=== PATIENT | female | born 1945 ===

== ENCOUNTER 2022-06-21 10:04 | Inpatient (IN) | payer MEDICARE, BC ==
[~2022-06-21] VITALS: Ht 154.9 cm; Wt 60.1 kg
[2022-06-21] VITALS (12 sets, daily range): BP systolic 91–125; BP diastolic 44–82; PULSE 57–72; TEMP 97–97.9
[2022-06-21] MEDS ORDERED: FOSAMAX5 MG PO (11:16)
[2022-06-21] MEDS ORDERED: COMPLETE MULTI1 TAB PO (11:17)
--- NOTE | 2022-06-21 13:24 | NUR ---
Patient admitted to room 328. Alert & oriented. & anesthesia rounded. Plan of care reviewed. Lr to gravity to IV in LAC. Patient up to the bathroom & voided. Brushed her teeth at this sink. Admission paperwork complete. Patient to the OR with Constanza, will await her return
--- NOTE | 2022-06-21 16:14 | NUR ---
Patient resting in bed post op. Visitiors at bedside. Vitals stable on room air. Lap site x3 edges well approximated. Denies nausea, food ordered. tolerating clears. Iv to INT. Will monitor
--- NOTE | 2022-06-21 18:14 | NUR ---
Patient has been up to the bathroom & was able to void. Did well with dinner. Denies the need for pain medication. Vss on room air. Scds ble Will report off to nightnurse
--- NOTE | 2022-06-21 20:11 | NUR ---
pt sleeping upon entry, easily awaken. assessment complete. x3 lap sites are cdi. pt rates her pain a 2/10. bowel sounds are active. denies passing gas and nausea. dressing to RLE is cdi. call light within reach. no needs at this time.
[2022-06-22 04:10] VITALS: BP 106/50; PULSE 72; TEMP 97.5
[2022-06-22 08:21] VITALS: BP 124/51; PULSE 66; TEMP 98.2
[2022-06-22] MEDS ORDERED: NORCO 325 MG-51 TAB PO (08:35)
--- NOTE | 2022-06-22 09:24 | NUR ---
0700-PT RESTING BED. PT STATES SHE FEELS MUCH BETTER AND IS PASSING GAS. PT HAS CALL LIGHT AND INSTRUCTED TO CALL WITH ALL NEEDS. 0900-PT IS TO BE DISCHARGE TODAY. PT STATES FAMILY CAN NOT COME PICK HER UP TILL AROUND DINNER TIME.
--- NOTE | 2022-06-22 10:32 | NUR ---
IV DCD. DISCHARGE INSTRUCTIONS DISCUSSED WITH PT. ALL QUESITONS ANSWERED. PT REMINDED TO [employer] [facility]. PT DRESSED AND AWAITING FAMILY FOR DISCHARGE.
--- NOTE | 2022-06-22 11:59 | NUR ---
Social Problems Specialist rounds: Social Problems Specialist visit attempted. RN with Patient. Social Problems Specialist later saw RN pushing Patient in a wheelchair.
== END 2022-06-22 10:49 | disposition home or self-care (01) | DRG 352 ==
LOC: MEDICAL 10:04 → SURG 11:17
PROVIDERS: ADMIT Surgery
PROC: 8E0W4CZ Robotic Assisted Procedure of Trunk Region, Percutaneous Endoscopic Approach (ICD-10-PCS; 2022-06-21)
PROC: 0YU54JZ Supplement Right Inguinal Region with Synthetic Substitute, Percutaneous Endoscopic Approach (ICD-10-PCS; principal; 2022-06-21 13:00)
DX: K40.30 Unilateral inguinal hernia, with obstruction, without gangrene, not specified as recurrent (principal); Z98.51 Tubal ligation status; Z88.0 Allergy status to penicillin
CPT/HCPCS: C1781; J0690; J1100; J1885; J2250; J2405; J2704; J3010